=== PATIENT | female | born 2000 | race Hispanic/Latino ===

== ENCOUNTER 2020-10-17 18:36 | Emergency (ER) | payer OTHER ==
[~2020-10-17] VITALS: Ht 175.3 cm; Wt 90.7 kg
[2020-10-17] MEDS ORDERED: VALTREX1000 MG PO (19:04)
[2020-10-17] MEDS ORDERED: ARTIFICIAL TEA1 EACH OP (19:04)
[2020-10-17] MEDS ORDERED: PREDNISONE20 MG PO (19:04)
== END 2020-10-17 19:15 | disposition home or self-care (01) ==
LOC: ER 19:00
DX: G51.0 Bell's palsy (principal)
CPT/HCPCS: 99283